=== PATIENT | female | born 2005 | race Two or more races ===

== ENCOUNTER 2023-12-21 12:39 | Emergency (ER) | payer MEDICAID ==
[~2023-12-21] VITALS: Ht 160 cm; Wt 102.5 kg
[2023-12-21 12:40] VITALS: PULSE 70; RESP 18; TEMP 98.9
[2023-12-21] MEDS ORDERED: SODIUM CHLORIDE 0.9% 1000ML 1,000 ML ONE (14:27)
[2023-12-21] MEDS: FAMOTIDINE 20 MG/2 ML VIAL IV STA (15:09)
[2023-12-21] MEDS: KETOROLAC TROMETHAMINE 30 MG/ML VIAL IV STA (15:10)
[2023-12-21] MEDS: SODIUM CHLORIDE 0.9% 1000ML 1,000 ML IV ONE (15:11)
[2023-12-21] MEDS ORDERED: IOPAMIDOL 370 MG/ML 100 ML INFUS..BTL INJ ONE (15:32)
[2023-12-21] MEDS ORDERED: SODIUM CHLORIDE 0.9% 100 ML ONE (15:32)
[2023-12-21] MEDS ORDERED: NAPROSYN500 MG PO (17:18)
[2023-12-21] MEDS ORDERED: FAMOTIDINE40 MG PO (17:24)
[2023-12-21 17:41] VITALS: BP 133/61; PULSE 72; RESP 17; TEMP 98.7; O2SAT 100
== END 2023-12-21 17:40 | disposition home or self-care (01) ==
LOC: FSED 12:45
DX: K30 Functional dyspepsia (principal); R07.81 Pleurodynia; R07.89 Other chest pain; R94.31 Abnormal electrocardiogram [ECG] [EKG]
CPT/HCPCS: 71260; 80053; 81003; 82553; 84484; 85025; 85379; 93005; 99284; J1885; J7030; J7050; Q9967